=== PATIENT | female | born 1965 | race Two or more races ===

== ENCOUNTER 2018-09-05 09:57 | Outpatient (CLI) | payer OTHER | END 2018-09-05 10:28 | disposition home or self-care (01) | LOC: SONOGRAMA 09:57 → MAMO-SONO 11:45 | DX: A08.8 Other specified intestinal infections (principal) ==

== ENCOUNTER 2019-01-17 07:15 | Outpatient (CLI) | payer OTHER | END 2019-01-17 07:26 | disposition home or self-care (01) | LOC: MRI 07:15 | DX: R94.5 Abnormal results of liver function studies (principal) | CPT/HCPCS: 74181 ==

== ENCOUNTER 2020-06-13 09:21 | Outpatient (CLI) | payer OTHER | END 2020-06-13 09:26 | disposition home or self-care (01) | LOC: TOM 09:21 | PROVIDERS: ATTEND Specialist | DX: K43.2 Incisional hernia without obstruction or gangrene (principal) ==

== ENCOUNTER 2020-07-18 04:50 | Day surgery (SDC) | payer OTHER ==
[~2020-07-18 04:50] MED LIST: ARMOUR THYROID30 M1 PO; FORTAMET500 MG PO; PROMETRIUM200 MG PO; PROTONIX PO; [UNRECOGNIZED DRUG - OTHER]
== END 2020-07-18 11:40 | disposition home or self-care (01) ==
LOC: CIR.AMB 04:50
PROVIDERS: ATTEND Specialist
DX: K42.9 Umbilical hernia without obstruction or gangrene (principal); Z20.828 Contact with and (suspected) exposure to other viral communicable diseases

== ENCOUNTER 2021-12-09 10:07 | Outpatient (CLI) | payer OTHER | END 2021-12-09 10:26 | disposition home or self-care (01) | LOC: SONOGRAMA 10:07 | PROVIDERS: ATTEND General Practice | DX: K81.9 Cholecystitis, unspecified (principal) ==

== ENCOUNTER 2023-06-25 09:29 | Outpatient (CLI) | payer OTHER | END 2023-06-25 09:45 | disposition home or self-care (01) | LOC: RAD 09:29 | PROVIDERS: ATTEND Internal Medicine Cardiovascular Disease | DX: I71.21 Aneurysm of the ascending aorta, without rupture (principal) ==

== ENCOUNTER 2023-11-11 10:10 | Outpatient (CLI) | payer OTHER | END 2023-11-11 10:20 | disposition home or self-care (01) | LOC: TOM 10:10 | PROVIDERS: ATTEND Internal Medicine Cardiovascular Disease | DX: J44.9 Chronic obstructive pulmonary disease, unspecified (principal); J11.1 Influenza due to unidentified influenza virus with other respiratory manifestations; I10 Essential (primary) hypertension ==

== ENCOUNTER 2024-01-14 08:01 | Outpatient (CLI) | payer OTHER | END 2024-01-14 08:12 | disposition home or self-care (01) | LOC: SONOGRAMA 08:01 | PROVIDERS: ATTEND Internal Medicine Gastroenterology | DX: R16.1 Splenomegaly, not elsewhere classified (principal) ==

== ENCOUNTER 2024-09-20 13:01 | Outpatient (CLI) | payer OTHER | END 2024-09-20 13:12 | disposition home or self-care (01) | LOC: MAMO-SONO 13:01 | PROVIDERS: ATTEND Obstetrics & Gynecology | DX: N60.11 Diffuse cystic mastopathy of right breast (principal); N60.12 Diffuse cystic mastopathy of left breast; Z12.31 Encounter for screening mammogram for malignant neoplasm of breast ==

== ENCOUNTER → 2024-12-19 | Outpatient (CLI) | payer OTHER ==
[2024-12-19 12:48] LABS: CREATININE SERUM 0.73 mg/dL (0.55-1.02)
== END | disposition home or self-care (01) ==
LOC: LAB 11:16
PROVIDERS: ATTEND Radiology Diagnostic Radiology
DX: R10.30 Lower abdominal pain, unspecified (principal)

== ENCOUNTER 2024-12-29 08:39 | Outpatient (CLI) | payer OTHER | END 2024-12-29 08:41 | disposition home or self-care (01) | LOC: TOM 08:39 | DX: I71.21 Aneurysm of the ascending aorta, without rupture (principal) | CPT/HCPCS: 71275 ==

== ENCOUNTER 2025-09-25 10:22 | Outpatient (CLI) | payer OTHER | END 2025-09-25 10:32 | disposition home or self-care (01) | LOC: MAMO-SONO 10:22 | PROVIDERS: ATTEND Obstetrics & Gynecology | DX: N60.11 Diffuse cystic mastopathy of right breast (principal); N60.12 Diffuse cystic mastopathy of left breast; Z12.31 Encounter for screening mammogram for malignant neoplasm of breast ==